=== PATIENT | male | born 1940 | race Caucasian/White ===

== ENCOUNTER 2019-01-10 08:34 | Day surgery (SDC) | payer MEDICARE, OTHER ==
[~2019-01-10 08:34] MED LIST: ASPI81EC; ATEN50; ATEN50 PO; CEPH500 PO; CYCL10 PO; ENOX80I SQ; FURO40; HYDACE5 PO; HYDACE7.5 PO; HYDR1TAB94 PO; IBUP800 PO; INDO25; LISI10 PO; LISI20; LISI20 PO; LISI5 PO; LISINOPRIL PO; MULVITMINE; Nitrostat0.4 MG SL; ONDA4 PO; OXYACE5T PO; POTCHL20ER; SIMV40 PO; SIMV80 PO; TAMS.4ER; TAMS.4ER PO; TRAM50 PO; WARF1; WARF1 PO; WARF4 PO; WARF5; WARF5 PO
--- NOTE | 2019-01-10 08:56 | NUR ---
INR IS 1.8 ON TORY MACHINE. ALSO PT HAS A INR MACHINE AND HIS INR AT HOME WAS 2.0.
[2019-01-10] MEDS ORDERED: ENOX80I SC (11:05)
== END 2019-01-10 16:54 | disposition home or self-care (01) ==
LOC: ATC 08:34
DX: Z51.81 Encounter for therapeutic drug level monitoring (principal); I10 Essential (primary) hypertension; E78.5 Hyperlipidemia, unspecified; H91.93 Unspecified hearing loss, bilateral; G47.31 Primary central sleep apnea; Z79.01 Long term (current) use of anticoagulants; Z79.899 Other long term (current) drug therapy; Z95.2 Presence of prosthetic heart valve; Z95.1 Presence of aortocoronary bypass graft
CPT/HCPCS: 85610; J1650

== ENCOUNTER 2019-01-11 00:10 | Day surgery (SDC) | payer MEDICARE, OTHER ==
[~2019-01-11 00:10] MED LIST changes: +ENOX80I SC
== END 2019-01-11 16:45 | disposition home or self-care (01) ==
LOC: ATC 00:10
DX: Z51.81 Encounter for therapeutic drug level monitoring (principal); I10 Essential (primary) hypertension; E78.5 Hyperlipidemia, unspecified; G47.33 Obstructive sleep apnea (adult) (pediatric); I25.10 Atherosclerotic heart disease of native coronary artery without angina pectoris; Z79.01 Long term (current) use of anticoagulants; Z95.2 Presence of prosthetic heart valve; Z79.899 Other long term (current) drug therapy; Z95.1 Presence of aortocoronary bypass graft
CPT/HCPCS: 96372; J1650

== ENCOUNTER 2019-01-13 12:44 | Day surgery (SDC) | payer MEDICARE, OTHER ==
[~2019-01-13] VITALS: Ht 172.7 cm; Wt 79.9 kg
--- NOTE | 2019-01-13 14:01 | NUR ---
01/13/19 1401 Mariela Guerra 2 IV ATTEMPTS FIRST ATTEMPT IN RIGHT FOREARM. AFTER BLOOD RETRIEVED FOR PT/INR, IV INFILTRATED SECOND ATTEMPT IN RIGHT HAND SUCCESSFUL. PT TOW
[2019-01-13 14:02] LABS: International Normalized Ratio 1.08; Prothrombin Time Results 11.4 Sec (9.7-11.5)
--- NOTE | 2019-01-13 17:26 | NUR ---
01/13/19 1726 Amos Toscano NURSE ASSISTED PATIENT WALK OUT TO HIS RIDE HOME
== END 2019-01-13 16:37 | disposition home or self-care (01) ==
LOC: ORSCSDS 12:44
PROVIDERS: Orthopaedic Surgery
PROC: 0JBK0ZX Excision of Left Hand Subcutaneous Tissue and Fascia, Open Approach, Diagnostic (ICD-10-PCS; principal; 2019-01-13 14:05)
DX: D21.10 Benign neoplasm of connective and other soft tissue of unspecified upper limb, including shoulder (principal); Z87.891 Personal history of nicotine dependence; Z79.899 Other long term (current) drug therapy; Z79.01 Long term (current) use of anticoagulants
CPT/HCPCS: 85610; 88305; J0690; J1100; J2250; J2405; J3010; J7120

== ENCOUNTER 2019-01-17 07:44 | Day surgery (SDC) | payer MEDICARE, OTHER ==
--- NOTE | 2019-01-17 08:44 | NUR ---
PT'S INR WAS 1.8 ON HIS MACHINE FROM HOME.
== END 2019-01-17 16:34 | disposition home or self-care (01) ==
LOC: ATC 07:44
DX: Z51.81 Encounter for therapeutic drug level monitoring (principal); I25.10 Atherosclerotic heart disease of native coronary artery without angina pectoris; G47.33 Obstructive sleep apnea (adult) (pediatric); G47.37 Central sleep apnea in conditions classified elsewhere; I10 Essential (primary) hypertension; E78.5 Hyperlipidemia, unspecified; Z79.899 Other long term (current) drug therapy; Z79.02 Long term (current) use of antithrombotics/antiplatelets; Z95.2 Presence of prosthetic heart valve
CPT/HCPCS: 96372; J1650

== ENCOUNTER 2019-01-18 00:26 | Day surgery (SDC) | payer MEDICARE, OTHER ==
--- NOTE | 2019-01-18 08:14 | NUR ---
PT TESTS HIS OWN INR AT HOME. HE REPORTS THAT HE WAS 2.3 THIS MORNING. HE WILL RETURN THIS AFTERNOON FOR ANOTHER DOSE OF LOVENOX AND RETEST HIS INR TOMORROW MORNING. IF INR IS > OR = TO 2.5 TOMORROW MORNING, PT WILL CALL TORY AND LET STAFF KNOW THAT HE WILL NOT BE IN FOR LOVENOX TOMORROW.
== END 2019-01-18 16:22 | disposition home or self-care (01) ==
LOC: ATC 00:26
DX: Z51.81 Encounter for therapeutic drug level monitoring (principal); G47.33 Obstructive sleep apnea (adult) (pediatric); G47.37 Central sleep apnea in conditions classified elsewhere; H91.93 Unspecified hearing loss, bilateral; E78.5 Hyperlipidemia, unspecified; I10 Essential (primary) hypertension; Z95.1 Presence of aortocoronary bypass graft; Z79.01 Long term (current) use of anticoagulants; Z95.2 Presence of prosthetic heart valve
CPT/HCPCS: J1650

== ENCOUNTER → 2019-12-01 | Outpatient (CLI) | payer MEDICARE, OTHER ==
[2019-12-01 12:26] LABS: Source, Urine Clean Catch
[2019-12-01 13:41] LABS: Bilirubin, Urine Neg (Neg); Blood, Urine 5+ (Neg); Glucose Qualitative, Urine Neg (Neg); Ketones, Urine Neg (Neg); Leukocyte Esterase, Urine 1+ (Neg); Nitrite, Urine Neg (Neg); Protein, Urine 2+ (Neg); Specific Gravity, Urine 1.005 (1.003-1.022); Urobilinogen, Urine NORM (Normal); pH, Urine 6.5 (5.0-8.0)
[2019-12-01 14:00] LABS: Appearance, Urine Cloudy (Clear); Color, Urine Red (P-Yellow)
[2019-12-01 14:02] LABS: Red Blood Cells, Urine TNTC /hpf (0-2); Squamous Epithelial Cells Rare /hpf (Few); White Blood Cells, Urine 0-2 /hpf (0-5)
[2019-12-01 14:03] LABS: Bacteria Rare /hpf
== END | disposition home or self-care (01) ==
LOC: LAB SHORT 12:25 → LAB 12:26 → EDSTATUS 02-03 09:10 → LAB FUT 02-03 09:10
PROVIDERS: Internal Medicine
DX: R31.9 Hematuria, unspecified (principal)
CPT/HCPCS: 81001; 87086

== ENCOUNTER 2020-09-19 12:19 | Day surgery (SDC) | payer MEDICARE, OTHER | END 2020-09-19 15:38 | disposition home or self-care (01) | LOC: ATC 12:19 | DX: Z48.89 Encounter for other specified surgical aftercare (principal); I10 Essential (primary) hypertension; G47.33 Obstructive sleep apnea (adult) (pediatric); Z95.2 Presence of prosthetic heart valve; Z79.01 Long term (current) use of anticoagulants; Z79.82 Long term (current) use of aspirin; Z79.899 Other long term (current) drug therapy; Z95.1 Presence of aortocoronary bypass graft | CPT/HCPCS: 96372; J1650 ==

== ENCOUNTER 2020-09-20 00:06 | Day surgery (SDC) | payer MEDICARE, OTHER | END 2020-09-20 22:43 | disposition home or self-care (01) | LOC: ATC 00:06 | DX: Z01.818 Encounter for other preprocedural examination (principal); I10 Essential (primary) hypertension; E78.5 Hyperlipidemia, unspecified; N40.1 Benign prostatic hyperplasia with lower urinary tract symptoms; N13.8 Other obstructive and reflux uropathy; Z95.2 Presence of prosthetic heart valve; Z95.1 Presence of aortocoronary bypass graft; Z79.01 Long term (current) use of anticoagulants | CPT/HCPCS: J1650 ==

== ENCOUNTER 2020-09-20 15:40 | Emergency (ER) | payer MEDICARE, OTHER ==
[~2020-09-20] VITALS: Ht 172.7 cm; Wt 81.7 kg
== END 2020-09-20 16:22 | disposition home or self-care (01) ==
LOC: ER 15:40
DX: Z76.89 Persons encountering health services in other specified circumstances (principal); Z79.899 Other long term (current) drug therapy; Z79.01 Long term (current) use of anticoagulants; Z87.442 Personal history of urinary calculi
CPT/HCPCS: 96372; J1650

== ENCOUNTER 2020-09-21 00:46 | Day surgery (SDC) | payer MEDICARE, OTHER ==
--- NOTE | 2020-09-21 15:33 | NUR ---
PT REPORTS CONCERN FOR AFTER PROCEDURE AND LACK OF ORDERS FOR LOVENOX BRIDGING ONCE HE RESTARTS HIS COUMADIN. WILL SEND NOTE TO DR. PÉREZ' OFFICE ASKING HER TO FOLLOW UP WITH BRIDGING LOVENOX AND FINGERSTICK INR CHECKS AFTER HIS PROCEDURE ON THURSDAY. REQUESTED THAT DON ALSO CONTACT DR. PÉREZ' OFFICE ON THURSDAY MORNING TO ALSO REQUEST BRIDGING INSTRUCTIONS.
== END 2020-09-21 15:33 | disposition home or self-care (01) ==
LOC: ATC 00:46
DX: Z01.818 Encounter for other preprocedural examination (principal); I10 Essential (primary) hypertension; E78.5 Hyperlipidemia, unspecified; N40.1 Benign prostatic hyperplasia with lower urinary tract symptoms; N13.8 Other obstructive and reflux uropathy; Z95.2 Presence of prosthetic heart valve; Z95.1 Presence of aortocoronary bypass graft; Z79.01 Long term (current) use of anticoagulants
CPT/HCPCS: J1650

== ENCOUNTER 2020-09-22 13:17 | Day surgery (SDC) | payer MEDICARE | END 2020-09-22 13:27 | disposition home or self-care (01) | LOC: ATC 13:17 | DX: Z01.818 Encounter for other preprocedural examination (principal); I10 Essential (primary) hypertension; E78.5 Hyperlipidemia, unspecified; N40.1 Benign prostatic hyperplasia with lower urinary tract symptoms; N13.8 Other obstructive and reflux uropathy; Z95.2 Presence of prosthetic heart valve; Z95.1 Presence of aortocoronary bypass graft; Z79.01 Long term (current) use of anticoagulants | CPT/HCPCS: J1650 ==

== ENCOUNTER 2020-09-23 01:51 | Day surgery (SDC) | payer MEDICARE, OTHER | END 2020-09-23 11:15 | disposition home or self-care (01) | LOC: ATC 01:51 | DX: Z01.818 Encounter for other preprocedural examination (principal); I10 Essential (primary) hypertension; I25.10 Atherosclerotic heart disease of native coronary artery without angina pectoris; E78.5 Hyperlipidemia, unspecified; N40.1 Benign prostatic hyperplasia with lower urinary tract symptoms; N13.8 Other obstructive and reflux uropathy; Z79.82 Long term (current) use of aspirin; Z95.2 Presence of prosthetic heart valve; Z79.01 Long term (current) use of anticoagulants; Z79.899 Other long term (current) drug therapy; Z95.1 Presence of aortocoronary bypass graft | CPT/HCPCS: J1650 ==

== ENCOUNTER 2020-09-26 00:34 | Day surgery (SDC) | payer MEDICARE, OTHER ==
--- NOTE | 2020-09-26 11:18 | NUR ---
PT TOOK OWN INR THIS AM AND HE WAS 1.1. EXPLAINED TO PT THAT HE NEEDS TO LET DO THEM FROM NOW ON FINISH.
== END 2020-09-26 11:15 | disposition home or self-care (01) ==
LOC: LAB 00:34 → ATC 00:34
DX: Z01.818 Encounter for other preprocedural examination (principal); I10 Essential (primary) hypertension; Z79.01 Long term (current) use of anticoagulants; Z95.2 Presence of prosthetic heart valve
CPT/HCPCS: 96372; J1650

== ENCOUNTER 2020-09-28 01:47 | Day surgery (SDC) | payer MEDICARE, OTHER ==
--- NOTE | 2020-09-28 11:30 | NUR ---
PT REPORTS HE WAS HAVING BLEEDING FROM HIS GUMS FROM HIS TOOTH EXTRACTION AREA AND WAS TOLD BY DR. PÉREZ TO NOT COME AND GET HIS LOVENOX INJECTION YESTERDAY. HE REPORTS THAT THE BLEEDING HAS IMPROVED. HE SAW HIS DENTIST YESTERDAY.
== END 2020-09-28 11:15 | disposition home or self-care (01) ==
LOC: ATC 01:47
DX: Z01.818 Encounter for other preprocedural examination (principal); I10 Essential (primary) hypertension; Z79.01 Long term (current) use of anticoagulants; Z95.2 Presence of prosthetic heart valve
CPT/HCPCS: 36416; 85610; 96372; J1650

== ENCOUNTER 2020-09-29 00:26 | Day surgery (SDC) | payer MEDICARE, OTHER | END 2020-09-29 22:35 | disposition home or self-care (01) | LOC: ATC 00:26 | DX: Z98.890 Other specified postprocedural states (principal); I10 Essential (primary) hypertension; G47.33 Obstructive sleep apnea (adult) (pediatric); I25.10 Atherosclerotic heart disease of native coronary artery without angina pectoris; N40.1 Benign prostatic hyperplasia with lower urinary tract symptoms; N13.8 Other obstructive and reflux uropathy; E78.5 Hyperlipidemia, unspecified; Z95.2 Presence of prosthetic heart valve; Z79.01 Long term (current) use of anticoagulants; Z79.82 Long term (current) use of aspirin; Z79.899 Other long term (current) drug therapy; Z95.1 Presence of aortocoronary bypass graft | CPT/HCPCS: J1650 ==

== ENCOUNTER 2020-09-30 01:11 | Day surgery (SDC) | payer MEDICARE, OTHER | END 2020-09-30 22:33 | disposition home or self-care (01) | LOC: ATC 01:11 | DX: Z98.890 Other specified postprocedural states (principal); I10 Essential (primary) hypertension; G47.33 Obstructive sleep apnea (adult) (pediatric); I25.10 Atherosclerotic heart disease of native coronary artery without angina pectoris; N40.1 Benign prostatic hyperplasia with lower urinary tract symptoms; N13.8 Other obstructive and reflux uropathy; E78.5 Hyperlipidemia, unspecified; Z95.2 Presence of prosthetic heart valve; Z79.01 Long term (current) use of anticoagulants; Z79.82 Long term (current) use of aspirin; Z79.899 Other long term (current) drug therapy; Z95.1 Presence of aortocoronary bypass graft | CPT/HCPCS: J1650 ==

== ENCOUNTER → 2021-08-19 | Outpatient (CLI) | payer MEDICARE, OTHER | END | disposition home or self-care (01) | LOC: LAB 09:46 → LAB SHORT 09:46 → LAB FUT 08-13 08:50 | DX: N20.0 Calculus of kidney (principal) | CPT/HCPCS: 81050 ==

== ENCOUNTER → 2022-02-01 | Outpatient (CLI) | payer MEDICARE, OTHER ==
[2022-02-10 19:09] LABS: BRUSHITE 1.61 ratio (0.00-3.00); CALCIUM OXALATE 1.25 ratio (0.00-6.00); CALCIUM, URINE 170.1 mg/24 hr (0.0-320.0); CALCIUM, URINE 6.3 mg/dL (Not Estab.); CHLORIDE URINE 54 (29-181); CITRIC ACID (CITRATE) 104 mg/L (Not Estab.); CITRIC ACID(CITRATE) 281 mg/24 hr (320-1240); CREATININE, URINE 25.2 mg/dL (Not Estab.); CREATININE, URINE 680.4 mg/24 hr (1000.0-2000.0); MONOSODIUM URATE 0.37 ratio (0.00-4.00); OSMOLALITY, URINE 169 (300-900); SODIUM, URINE 27 mmol/L (Not Estab.); SODIUM, URINE 73 (23-207); STRUVITE 0.02 ratio (0.00-1.00); URIC ACID 0.11 ratio (0.00-1.20); URINE VOLUME 2700 mL/24 hr (800-1800); URINE VOLUME (PRESERVATIVE) 2700 mL/24 hr (800-1800)
== END | disposition home or self-care (01) ==
LOC: LAB SHORT 07:40 → LAB FUT 12-11 18:15
PROVIDERS: Physician Assistant
DX: N20.0 Calculus of kidney (principal)
CPT/HCPCS: 81003; 82131; 82140; 82340; 82436; 82507; 82570; 83735; 83935; 83945; 84105; 84133; 84300; 84392; 84560

== ENCOUNTER → 2022-06-19 | Outpatient (CLI) | payer MEDICARE, OTHER ==
[2022-06-19 13:14] LABS: Source, Urine Clean Catch
[2022-06-19 15:41] LABS: Appearance, Urine Clear (Clear); Bilirubin, Urine Neg (Neg); Blood, Urine Neg (Neg); Color, Urine Yellow (P-Yellow); Glucose Qualitative, Urine Neg (Neg); Ketones, Urine Neg (Neg); Leukocyte Esterase, Urine Neg (Neg); Nitrite, Urine Neg (Neg); Protein, Urine Neg (Neg); Urobilinogen, Urine NORM (Normal)
== END | disposition home or self-care (01) ==
LOC: LAB SHORT 13:12
PROVIDERS: Internal Medicine
DX: N20.0 Calculus of kidney (principal); R31.9 Hematuria, unspecified
CPT/HCPCS: 81003